=== PATIENT | female | born 1995 | race Caucasian/White ===

== ENCOUNTER 2019-09-11 17:43 | Day surgery (SDC) | payer BC ==
[~2019-09-11] VITALS: Ht 162.6 cm; Wt 136.3 kg
[2019-09-11] VITALS (15 sets, daily range): BP systolic 101–123; BP diastolic 60–95; PULSE 60–80; TEMP 98.4–98.8
--- NOTE | 2019-09-11 18:30 | NUR ---
HERE WITH SHAKIRA WITH C/O BLEEDING VAGINALLY 3 WEEKS NOW SINCE SAB. PLAN FOR D&C PER DR MEJIA. ADMIT PAPERS SIGNED.ORIENTED TO ROOM AND PLAN OF CARE 1844 IV START AND LABS OBTAINED. DR MEJIA HERE 1849 Jona MEADE CRNA HERE QUESTIONS ADDRESSED 1904 VOIDS CLEAN PAD ON . TO OR PER BED WITH PAULINA ARROYO. SHAKIRA REMAINS IN 222.
[2019-09-11 19:11] LABS: BASO % 0.2 % (0.0-2.0); EOS # 0.1 (0.0-0.7); EOS % 0.9 % (0-4.0); GRAN # 4.6 (1.4-6.5); GRAN % 53.4 % (42.2-75.2); HEMATOCRIT 38.5 % (37.0-47.0); HEMOGLOBIN 12.5 g/dl (12.5-16.0); LYMPH # 3.2 (1.2-3.4); LYMPH % 37.3 % (20.0-51.0); MEAN CELL VOLUME 89 fl (80.0-100.0); MEAN CORPUSCULAR HEMOGLOBIN 29 pg (27.0-31.0); MEAN CORPUSCULAR HGB CONC 33 g/dl (33.0-37.0); MEAN PLATELET VOLUME 10.9 fl (7.4-10.4); MONO # 0.7 (0.1-0.6); PLATELET COUNT 279 K/mm3 (130-400); RED BLOOD COUNT 4.35 M/mm3 (4.10-5.30); REDCELL DISTRIBUTION WIDTH-CV 13.2 % (11.5-14.5)
[2019-09-11] MEDS ORDERED: LEXAPRO 5MG5 MG PO (19:26)
[2019-09-11] MEDS ORDERED: PERCOCET 325 MG1 TA2 PO (19:46)
== END 2019-09-11 23:50 | disposition home or self-care (01) ==
LOC: LDRO 17:43 → OB 17:58 → LDRO 17:58 → OB 23:50
PROVIDERS: Obstetrics & Gynecology
DX: O03.4 Incomplete spontaneous abortion without complication (principal); F41.9 Anxiety disorder, unspecified; Z79.899 Other long term (current) drug therapy
CPT/HCPCS: OP; J1885; J2405; J2704; J3010; J7120

== ENCOUNTER 2020-03-06 12:34 | Emergency (ER) | payer BC ==
[~2020-03-06] VITALS: Ht 162.6 cm; Wt 68.2 kg
[~2020-03-06 12:34] MED LIST: LEXAPRO 5MG5 MG PO; PERCOCET 325 MG1 TA2 PO
[2020-03-06 12:43] VITALS: TEMP 98.1
[2020-03-06 13:15] LABS: COLLECTION METHOD CLEAN CATCH
[2020-03-06 13:25] LABS: BASO % 0.2 % (0.0-2.0); EOS # 0.1 (0.0-0.7); EOS % 1.1 % (0-4.0); GRAN # 6.3 (1.4-6.5); GRAN % 66.5 % (42.2-75.2); HEMATOCRIT 37.9 % (37.0-47.0); HEMOGLOBIN 12.5 g/dl (12.5-16.0); LYMPH # 2.3 (1.2-3.4); LYMPH % 24.3 % (20.0-51.0); MEAN CELL VOLUME 92 fl (80.0-100.0); MEAN CORPUSCULAR HEMOGLOBIN 30 pg (27.0-31.0); MEAN CORPUSCULAR HGB CONC 33 g/dl (33.0-37.0); MEAN PLATELET VOLUME 10.7 fl (7.4-10.4); MONO # 0.7 (0.1-0.6); MONO % 7.6 % (1.7-9.3); PLATELET COUNT 236 K/mm3 (130-400); RED BLOOD COUNT 4.11 M/mm3 (4.10-5.30); REDCELL DISTRIBUTION WIDTH-CV 14.4 % (11.5-14.5)
[2020-03-06 13:26] LABS: PH 7 (5-8); SQUAMOUS EPITHELIAL 0-2 /hpf; URINE APPEARANCE Clear; URINE BACTERIA None Seen /hpf; URINE BILIRUBIN Negative (NEGATIVE); URINE BLOOD Negative (NEGATIVE); URINE COLOR Yellow; URINE GLUCOSE Negative (NEGATIVE); URINE KETONE Negative (NEGATIVE); URINE LEUKOCYTE ESTERASE Negative (NEGATIVE); URINE NITRATE Negative (NEGATIVE); URINE PROTEIN(semi-quant) Negative (NEGATIVE); URINE UROBILINOGEN Negative (NEGATIVE)
[2020-03-06 13:32] LABS: BILIRUBIN,TOTAL 0.3 mg/dL (0.0-1.0); CALCIUM 9.6 mg/dL (8.4-10.2); CREATININE, serum 0.44 (0.52-1.25); POTASSIUM 3.8 mmol/L (3.4-5.0); TOTAL PROTEIN 7.3 gm/dL (6.4-8.2)
[2020-03-06 16:15] VITALS: BP 109/66; PULSE 81
== END 2020-03-06 16:18 | disposition home or self-care (01) ==
LOC: COL.ER 12:34
PROVIDERS: Emergency Medicine
DX: O26.892 Other specified pregnancy related conditions, second trimester (principal); R10.31 Right lower quadrant pain; Z3A.17 17 weeks gestation of pregnancy; Z88.1 Allergy status to other antibiotic agents; Z88.6 Allergy status to analgesic agent; Z79.891 Long term (current) use of opiate analgesic

== ENCOUNTER 2020-05-29 05:43 | Outpatient (CLI) | payer BC, OTHER ==
[2020-05-29] VITALS (12 sets, daily range): BP systolic 92–128; BP diastolic 51–88; PULSE 83–115; TEMP 98.1–98.6
[~2020-05-29] VITALS: Ht 162.6 cm; Wt 79.5 kg
[2020-05-29] MEDS ORDERED: PRENATAL TABLET PO (06:04)
--- NOTE | 2020-05-29 06:18 | NUR ---
0550 G3 LO 29.4 WEEK GEST TO LR6 WITH C/O ABD PAIN CONSTANT AND RADIATING TO BACK FOR LAST 24 HOURS AND BECOMING WORSE. STATES OCC TIGHTENING IN ABD, TWICE AN HOUR. UTERUS PALPATES SOFT. ADM ASSESSMENT DONE
--- NOTE | 2020-05-29 06:40 | NUR ---
Patient up to bathroom for UA.
[2020-05-29 06:46] LABS: BASO % 0.3 % (0.0-2.0); EOS # 0.2 (0.0-0.7); EOS % 1.8 % (0-4.0); GRAN % 61.7 % (42.2-75.2); HEMOGLOBIN 11.8 g/dl (12.5-16.0); LYMPH # 2.4 (1.2-3.4); LYMPH % 25.1 % (20.0-51.0); MEAN CELL VOLUME 96 fl (80.0-100.0); MEAN CORPUSCULAR HEMOGLOBIN 32 pg (27.0-31.0); MEAN CORPUSCULAR HGB CONC 34 g/dl (33.0-37.0); MEAN PLATELET VOLUME 11.1 fl (7.4-10.4); MONO % 10.4 % (1.7-9.3); PLATELET COUNT 187 K/mm3 (130-400); RED BLOOD COUNT 3.65 M/mm3 (4.10-5.30); REDCELL DISTRIBUTION WIDTH-CV 13.5 % (11.5-14.5)
[2020-05-29 06:48] LABS: COLLECTION METHOD CLEAN CATCH
[2020-05-29 06:57] LABS: MUCOUS Present /lpf; PH 7 (5-8); SQUAMOUS EPITHELIAL 0-2 /hpf; URINE APPEARANCE Hazy; URINE BACTERIA None Seen /hpf; URINE BILIRUBIN Negative (NEGATIVE); URINE BLOOD 3+ (NEGATIVE); URINE COLOR Yellow; URINE GLUCOSE Negative (NEGATIVE); URINE KETONE Negative (NEGATIVE); URINE LEUKOCYTE ESTERASE Negative (NEGATIVE); URINE NITRATE Negative (NEGATIVE); URINE PROTEIN(semi-quant) Negative (NEGATIVE); URINE RBC >50 /hpf; URINE UROBILINOGEN Negative (NEGATIVE)
[2020-05-29 07:02] LABS: HEMATOCRIT 35.1 % (37.0-47.0)
[2020-05-29 07:09] LABS: ALBUMIN 3.3 gm/dL (3.5-5.0); BILIRUBIN,TOTAL 0.3 mg/dL (0.0-1.0); CALCIUM 8.8 mg/dL (8.4-10.2); CREATININE, serum 0.45 (0.52-1.25); POTASSIUM 3.7 mmol/L (3.4-5.0); TOTAL PROTEIN 6.3 gm/dL (6.4-8.2)
--- NOTE | 2020-05-29 07:20 | NUR ---
Ultrasound notified of order for renal ultrasound. Jen states she will be up at 0900.
--- NOTE | 2020-05-29 07:30 | NUR ---
Plan of care discussed with patient and . Questions answered.
[2020-05-29] MEDS ORDERED: NATURAL IRON65 MG PO (07:36)
--- NOTE | 2020-05-29 08:00 | NUR ---
0800- RN at bedside palpatingn ctx. Palpate mild-moderate every 4-5 min lasting 50-60 seconds in length. Patient states back pain is constant. Abdoinal pain is intermittent. Rates pain 08/03. 0835- Ultrasound at bedside. EFM off.
--- NOTE | 2020-05-29 09:00 | NUR ---
0900- Dr. Maynard at bedside and reviews plan of care with patient and significant other who verbalize understanding. See provider notes. 0935- 4gm magnesium sulfate bolus initiated. See EMAR. Patient reports pressure/pelvic pain. SVE by Dr. Maynard /-3, small amount of dark red blood on glove with exam. 0945- Bedside ultrasound by Dr. Maynard, vertex presentation. 1000- Ctx tracing inverse. Palpate mild. 1004- EMS at bedside. EFM off. Patient transfered to cart. Report given to EMS. 1015- Patient off unit via EMS. 1020- Report called to James ARROYO at [facility], [place].
== END 2020-05-29 10:15 | disposition critical access hospital (66) ==
LOC: LDRO 05:43 → LDR 05:53 → LDRO 09:37 → LDR 09:38 → LDRO 10:15
PROVIDERS: Obstetrics & Gynecology
DX: O99.891 Other specified diseases and conditions complicating pregnancy (principal); N13.30 Unspecified hydronephrosis; M54.5 Low back pain; Z3A.29 29 weeks gestation of pregnancy; Z98.890 Other specified postprocedural states
CPT/HCPCS: OP; J0702; J3475; J7120

== ENCOUNTER 2020-08-01 11:05 | Outpatient (CLI) | payer OTHER ==
[~2020-08-01] VITALS: Ht 162.6 cm; Wt 86.4 kg
[~2020-08-01 11:05] MED LIST changes: +NATURAL IRON65 MG PO; +PRENATAL TABLET PO
[2020-08-01 11:30] VITALS: BP 122/83; PULSE 110; TEMP 98.5
--- NOTE | 2020-08-01 11:30 | NUR ---
1110- Pt arrives on unit ambulatory with complaints of leaking small amount of fluid since last night. States it comes and goes, no large gushes noted. Pt denies vaginal bleeding but has been losing mucuus plug since . Pt denies regular contractions. +FM this morning but states decreased from normal. Pt into bathroom, changes into gown. 1115- Pt into bed, EFM and TOCO on and tracing. O2 sat monitor on and tracing maternal HR. VSS. Amniotrace negative with cough response. Assessment completed. Plan of care explained. Ice water given. Call light within reach.
[2020-08-01 12:02] VITALS: BP 125/82; PULSE 111
--- NOTE | 2020-08-01 12:15 | NUR ---
1202- EFM and TOCO off. Discussed plan to discharge home. Labor precautions given. Pt verbalizes understanding. Pt up to change into street clothes. 1215- Discharge paperwork given and explained. Pt and deny questions. Pt ambulates off unit in stable condition.
== END 2020-08-01 12:15 | disposition home or self-care (01) ==
LOC: LDRO 11:05 → LDR 11:32 → LDRO 12:15 → LDR 12:15
DX: Z34.83 Encounter for supervision of other normal pregnancy, third trimester (principal); Z3A.38 38 weeks gestation of pregnancy
CPT/HCPCS: OP

== ENCOUNTER 2020-08-04 11:40 | Outpatient (CLI) | payer OTHER ==
[~2020-08-04] VITALS: Ht 165.1 cm; Wt 87.5 kg
[2020-08-04 11:56] LABS: ALBUMIN 3.4 gm/dL (3.5-5.0); BILIRUBIN,TOTAL 0.2 mg/dL (0.0-1.0); CALCIUM 9.5 mg/dL (8.4-10.2); CREATININE, serum 0.43 (0.52-1.25); POTASSIUM 3.8 mmol/L (3.4-5.0); TOTAL PROTEIN 6.7 gm/dL (6.4-8.2)
[2020-08-04 11:59] LABS: BASO % 0.2 % (0.0-2.0); EOS # 0.1 (0.0-0.7); GRAN # 5.6 (1.4-6.5); GRAN % 67.9 % (42.2-75.2); HEMATOCRIT 37.5 % (37.0-47.0); HEMOGLOBIN 12.8 g/dl (12.5-16.0); LYMPH # 1.8 (1.2-3.4); LYMPH % 21.6 % (20.0-51.0); MEAN CELL VOLUME 94 fl (80.0-100.0); MEAN CORPUSCULAR HEMOGLOBIN 32 pg (27.0-31.0); MEAN CORPUSCULAR HGB CONC 34 g/dl (33.0-37.0); MEAN PLATELET VOLUME 12.2 fl (7.4-10.4); MONO # 0.7 (0.1-0.6); MONO % 8.8 % (1.7-9.3); PLATELET COUNT 161 K/mm3 (130-400); RED BLOOD COUNT 3.99 M/mm3 (4.10-5.30); REDCELL DISTRIBUTION WIDTH-CV 12.9 % (11.5-14.5)
== END 2020-08-04 13:00 | disposition home or self-care (01) ==
LOC: LDRO 11:40
PROVIDERS: Obstetrics & Gynecology
DX: O26.893 Other specified pregnancy related conditions, third trimester (principal); R31.0 Gross hematuria; Z20.822 Contact with and (suspected) exposure to COVID-19; Z3A.39 39 weeks gestation of pregnancy

== ENCOUNTER 2020-08-06 15:23 | Inpatient (IN) | payer OTHER ==
[2020-08-06] VITALS (23 sets, daily range): BP systolic 83–131; BP diastolic 47–82; PULSE 85–121; TEMP 98.3–98.9
[~2020-08-06] VITALS: Ht 165.1 cm; Wt 87.7 kg
[2020-08-06 16:12] LABS: HEMATOCRIT 40.2 % (37.0-47.0); HEMOGLOBIN 13.8 g/dl (12.5-16.0); MEAN CELL VOLUME 94 fl (80.0-100.0); MEAN CORPUSCULAR HEMOGLOBIN 32 pg (27.0-31.0); MEAN CORPUSCULAR HGB CONC 34 g/dl (33.0-37.0); MEAN PLATELET VOLUME 12.2 fl (7.4-10.4); PLATELET COUNT 176 K/mm3 (130-400); RED BLOOD COUNT 4.26 M/mm3 (4.10-5.30); REDCELL DISTRIBUTION WIDTH-CV 13.1 % (11.5-14.5)
[2020-08-06 16:31] LABS: BAND 2 % (0-10); EOSINOPHIL 1 % (0-4); LYMPHOCYTE 11 % (20.0-51.0); NEUTROPHILS 76 % (42.0-75.2)
[2020-08-06 16:32] LABS: PLATELET ESTIMATE NORMAL (NORMAL)
[2020-08-07] VITALS (12 sets, daily range): BP systolic 90–136; BP diastolic 48–101; PULSE 88–136; TEMP 98.1–99.6
[2020-08-07] MEDS ORDERED: IBU800 M1 PO (08:57)
[2020-08-08 08:00] VITALS: BP 112/65; PULSE 89; TEMP 97.7
[2020-08-08] MEDS ORDERED: PERCOCET 325 MG1 TA2 PO (10:17)
== END 2020-08-08 14:50 | disposition home or self-care (01) | DRG 807 ==
LOC: LDRO 15:23 → LDR 15:26 → LDRO 16:13 → LDR 16:13 → LDRO 16:13 → LDR 16:14 → OB 08-07 04:45
PROVIDERS: Obstetrics & Gynecology; ADMIT Obstetrics & Gynecology
PROC: 10E0XZZ Delivery of Products of Conception, External Approach (ICD-10-PCS; principal; 2020-08-07)
PROC: 0HQ9XZZ Repair Perineum Skin, External Approach (ICD-10-PCS; 2020-08-07)
DX: O70.0 First degree perineal laceration during delivery (principal); Z37.0 Single live birth; Z3A.39 39 weeks gestation of pregnancy
CPT/HCPCS: J2590; J7120

== ENCOUNTER → 2020-09-02 | Day surgery (SDC) | payer OTHER ==
[~2020-09-02] VITALS: Ht 165.1 cm; Wt 77.5 kg
[2020-09-02] VITALS (8 sets, daily range): BP systolic 109–118; BP diastolic 57–78; PULSE 53–73; TEMP 98.1–98.4
[~2020-09-02] MED LIST changes: +IBU800 M1 PO; +LYSTEDA650 MG PO
--- NOTE | 2020-09-02 21:30 | NUR ---
PT TO 220 FROM PACU. PT DROWSY BUT WAKES WHEN CALLED. POST OP VS STARTED. FUNDAL MESSAGE COMPLETED. BLEEDING VERY MINIMAL WITH NO CLOTS NOTED. PT DENIES NEEDING ANYTHING FOR PAIN AT THIS TIME. CALL LIGHT WITHIN REACH.
--- NOTE | 2020-09-02 23:35 | NUR ---
Discharge instructions explained to pt and pts mother. Questions answered. Pad with minimal bleeding noted. Pt to change into clothes. 2350: Pt wheeled off unit by [place] surgical training specialist and home with pts mother.
== END ==
LOC: SDCO 17:02
DX: N92.0 Excessive and frequent menstruation with regular cycle (principal); D64.9 Anemia, unspecified; N30.10 Interstitial cystitis (chronic) without hematuria; F32.9 Major depressive disorder, single episode, unspecified; F41.9 Anxiety disorder, unspecified; Z79.899 Other long term (current) drug therapy; Z87.891 Personal history of nicotine dependence; Z20.822 Contact with and (suspected) exposure to COVID-19
CPT/HCPCS: J0690; J1885; J2210; J2405; J2704; J3010; J7120

== ENCOUNTER 2020-09-11 21:26 | Observation (INO) | payer OTHER ==
[~2020-09-11 21:26] MED LIST changes: -LYSTEDA650 MG PO
[2020-09-11 23:00] VITALS: BP 115/71; PULSE 66; TEMP 97.9
[2020-09-11 23:21] LABS: BASO % 0.6 % (0.0-2.0); EOS # 0.2 (0.0-0.7); EOS % 3.3 % (0-4.0); GRAN % 41.4 % (42.2-75.2); HEMOGLOBIN 11.7 g/dl (12.5-16.0); LYMPH # 3.4 (1.2-3.4); LYMPH % 47.2 % (20.0-51.0); MEAN CELL VOLUME 96 fl (80.0-100.0); MEAN CORPUSCULAR HEMOGLOBIN 31 pg (27.0-31.0); MEAN CORPUSCULAR HGB CONC 32 g/dl (33.0-37.0); MEAN PLATELET VOLUME 10.7 fl (7.4-10.4); MONO # 0.5 (0.1-0.6); MONO % 7.2 % (1.7-9.3); PLATELET COUNT 199 K/mm3 (130-400); RED BLOOD COUNT 3.77 M/mm3 (4.10-5.30); REDCELL DISTRIBUTION WIDTH-CV 12.2 % (11.5-14.5)
[2020-09-11 23:22] LABS: HEMATOCRIT 36.1 % (37.0-47.0)
[2020-09-11 23:32] LABS: ALBUMIN 3.8 gm/dL (3.5-5.0); BILIRUBIN,TOTAL 0.2 mg/dL (0.0-1.0); CALCIUM 8.9 mg/dL (8.4-10.2); CREATININE, serum 0.75 (0.52-1.25); POTASSIUM 3.5 mmol/L (3.4-5.0); TOTAL PROTEIN 6.7 gm/dL (6.4-8.2)
[2020-09-12 03:30] VITALS: BP 102/64; PULSE 64; TEMP 98.4
[2020-09-12 08:00] VITALS: BP 89/47; PULSE 65; TEMP 98.4
[2020-09-12] MEDS ORDERED: LYSTEDA650 MG PO (11:06)
--- NOTE | 2020-09-12 11:25 | NUR ---
PT WITH NO VAGINAL BLEEDING SINCE MIDNIGHT. DISCHARGE INSTRUCTIONS REVIEWED AND EDUCATION COMPLETE. PT DISCHARGED TO HOME. TO FOLLOW UP SCHEDULED AND TAKE MEDICATION PRESCRIBED.
== END 2020-09-12 11:25 | disposition home or self-care (01) ==
LOC: OB 21:26
PROVIDERS: ADMIT Obstetrics & Gynecology
DX: N93.9 Abnormal uterine and vaginal bleeding, unspecified (principal)
CPT/HCPCS: G0378; J2210; J7120

== ENCOUNTER 2020-09-20 05:49 | Emergency (ER) | payer OTHER ==
[~2020-09-20] VITALS: Ht 162.6 cm; Wt 81.8 kg
[~2020-09-20 05:49] MED LIST changes: +LYSTEDA650 MG PO
[2020-09-20 05:51] VITALS: TEMP 98.3
[2020-09-20 06:12] LABS: BASO % 0.4 % (0.0-2.0); EOS # 0.1 (0.0-0.7); EOS % 1.9 % (0-4.0); GRAN # 4.3 (1.4-6.5); GRAN % 58.9 % (42.2-75.2); HEMOGLOBIN 10.6 g/dl (12.5-16.0); LYMPH # 2.3 (1.2-3.4); LYMPH % 32.1 % (20.0-51.0); MEAN CELL VOLUME 97 fl (80.0-100.0); MEAN CORPUSCULAR HEMOGLOBIN 31 pg (27.0-31.0); MEAN CORPUSCULAR HGB CONC 32 g/dl (33.0-37.0); MEAN PLATELET VOLUME 10.9 fl (7.4-10.4); MONO # 0.5 (0.1-0.6); MONO % 6.3 % (1.7-9.3); PLATELET COUNT 192 K/mm3 (130-400); RED BLOOD COUNT 3.47 M/mm3 (4.10-5.30); REDCELL DISTRIBUTION WIDTH-CV 12.5 % (11.5-14.5)
[2020-09-20 06:15] LABS: HEMATOCRIT 33.5 % (37.0-47.0)
[2020-09-20 06:20] LABS: INR 1.1 (0.8-3.0)
[2020-09-20 06:21] LABS: ALBUMIN 3.2 gm/dL (3.5-5.0); BILIRUBIN,TOTAL 0.1 mg/dL (0.0-1.0); CALCIUM 8.4 mg/dL (8.4-10.2); CREATININE, serum 0.89 (0.52-1.25); POTASSIUM 4.1 mmol/L (3.4-5.0); TOTAL PROTEIN 5.9 gm/dL (6.4-8.2)
[2020-09-20 06:23] LABS: PARTIAL THROMBOPLASTIN TIME 25.8 SECONDS (26.0-37.0)
[2020-09-20] MEDS ORDERED: LYSTEDA650 MG PO (09:32)
[2020-09-20 09:50] VITALS: BP 103/65; PULSE 65
== END 2020-09-20 09:50 | disposition home or self-care (01) ==
LOC: COL.ER 05:49
PROVIDERS: Emergency Medicine
DX: O72.1 Other immediate postpartum hemorrhage (principal); Z88.6 Allergy status to analgesic agent
CPT/HCPCS: J2405; J7030; J7120